=== PATIENT | female | born 1970 | race Two or more races ===

== ENCOUNTER 2019-09-02 14:52 | Emergency (ER) | payer SELFPAY ==
[~2019-09-02] VITALS: Ht 152.4 cm; Wt 65.8 kg
[2019-09-02 20:20] VITALS: BP 133/65
== END 2019-09-02 21:14 | disposition home or self-care (01) ==
LOC: ER 14:52
DX: S09.90XA Unspecified injury of head, initial encounter (principal); R51 Headache; W22.03XA Walked into furniture, initial encounter; Y93.89 Activity, other specified; Y92.89 Other specified places as the place of occurrence of the external cause; Y99.8 Other external cause status
CPT/HCPCS: 70450; 81025